=== PATIENT | male | born 1965 | race African-American/Black ===

== ENCOUNTER 2021-09-19 10:41 | Outpatient (CLI) | payer OTHER | END 2021-09-19 10:42 | disposition home or self-care (01) | LOC: TBSIIMAG 10:41 | PROVIDERS: ATTEND Neurological Surgery | DX: M47.12 Other spondylosis with myelopathy, cervical region (principal); M50.00 Cervical disc disorder with myelopathy, unspecified cervical region; M48.02 Spinal stenosis, cervical region; G95.89 Other specified diseases of spinal cord; M48.03 Spinal stenosis, cervicothoracic region; Z98.1 Arthrodesis status | CPT/HCPCS: 72141 ==

== ENCOUNTER 2021-10-02 08:10 | Outpatient (CLI) | payer OTHER | END 2021-10-02 08:11 | disposition home or self-care (01) | LOC: TBSIIMAG 08:10 | PROVIDERS: ATTEND Neurological Surgery | DX: M54.50 Low back pain, unspecified (principal); M47.816 Spondylosis without myelopathy or radiculopathy, lumbar region | CPT/HCPCS: 72148 ==

== ENCOUNTER 2021-11-14 08:40 | Outpatient (CLI) | payer OTHER | END 2021-11-14 08:41 | disposition home or self-care (01) | LOC: BICRAD 08:40 | PROVIDERS: ATTEND Neurological Surgery | DX: M47.12 Other spondylosis with myelopathy, cervical region (principal); M48.062 Spinal stenosis, lumbar region with neurogenic claudication; M47.816 Spondylosis without myelopathy or radiculopathy, lumbar region; M25.78 Osteophyte, vertebrae; Z98.1 Arthrodesis status | CPT/HCPCS: 72050; 72110 ==

== ENCOUNTER 2022-02-05 11:36 | Outpatient (CLI) | payer OTHER ==
[2022-02-05 12:32] LABS: Hemoglobin 13.7 g/dL (13.5-17.5); Mean Corpuscular HGB CONC 34.9 g/dL (32.0-36.0); Mean Corpuscular Hemoglobin 33.9 pg (27.0-33.0); Mean Platelet Volume 9.8 fl (7.4-10.4); Platelet Count 157 10x3/uL (150-450); RBC Distribution Width 11.8 % (11.5-14.5); Red Blood Cell (RBC) Count 4.04 10x6/uL (4.32-5.72); White Blood Cell (WBC) Count 3.7 10x3/uL (3.5-10.5)
[2022-02-05 12:43] LABS: INR-International Normal Ratio 1.1; Prothrombin Time 12.1 sec (9.5-12.1)
[2022-02-05 21:14] LABS: SARS-CoV-2 PCR by NAA Not Detected (NotDetected)
== END 2022-02-05 11:37 | disposition home or self-care (01) ==
LOC: LABBT 11:36
PROVIDERS: ATTEND Neurological Surgery
DX: Z01.812 Encounter for preprocedural laboratory examination (principal); G95.9 Disease of spinal cord, unspecified; M48.02 Spinal stenosis, cervical region; Z20.822 Contact with and (suspected) exposure to COVID-19
CPT/HCPCS: 85027; 85610; 85730; U0003; U0005

== ENCOUNTER 2022-02-08 05:27 | Observation (INO) | payer OTHER ==
[2022-02-08] MEDS ORDERED: Midazolam HCl 2 mg/2 ml Vial ONE (06:08)
[2022-02-08] MEDS ORDERED: fentaNYL Citrate/PF 100 MCG/2 ML SYRINGE ONE ×3 (06:09→08:43)
[2022-02-08] MEDS ORDERED: Lidocaine 2% Jelly 5 ML TUBE ONE (06:09)
[2022-02-08] MEDS ORDERED: EPINEPHrine 1 MG/ML AMP ONE (06:13)
[2022-02-08] MEDS ORDERED: Bupivacaine PF 0.5% 30 ML VIAL ONE ×2 (06:13→08:47)
[2022-02-08] MEDS ORDERED: Thrombin 5000 UNITS/5 ML VIAL ONE (06:13)
[2022-02-08] MEDS ORDERED: Neomycin-Polymyxin 1 ML AMP ONE (06:13)
[2022-02-08] MEDS ORDERED: Bacitracin Zinc Ointment 30 gm TUBE ONE (06:13)
[2022-02-08] MEDS ORDERED: ceFAZolin (BATCH) 2 GM/100 ML BAG ONE (06:50)
[2022-02-08] MEDS ORDERED: Cyclobenzaprine 10 MG TAB PO PRN (06:54)
[2022-02-08] MEDS ORDERED: diphenhydrAMINE 50 MG/ML VIAL IVP PRN (06:54)
[2022-02-08] MEDS ORDERED: Milk Of Magnesia 30 ML UDCUP PO PRN (06:54)
[2022-02-08] MEDS ORDERED: Acetaminophen/Codeine 30-300mg Tablet PO PRN (06:54)
[2022-02-08] MEDS ORDERED: Acetaminophen 325 MG TAB PO PRN (06:54)
[2022-02-08] MEDS ORDERED: HYDROcodone/Acetaminophen 7.5/325 mg Tablet PO PRN (06:54)
[2022-02-08] MEDS ORDERED: Ondansetron PF 4 MG/2 ML Vial IVP PRN (06:54)
[2022-02-08] MEDS ORDERED: Promethazine 25 MG TAB PO PRN (06:54)
[2022-02-08] MEDS ORDERED: Bisacodyl 10 MG SUPP PR PRN (06:54)
[2022-02-08] MEDS ORDERED: Mag-Al 1200 mg/1200 mg/30 ML UDCUP PO PRN (06:54)
[2022-02-08] MEDS ORDERED: Ondansetron PF 4 MG/2 ML Vial ONE (07:05)
[2022-02-08] MEDS ORDERED: PHENYLEPHRINE-NS 100 MCG/ML 10 ML SYRINGE ONE (07:05)
[2022-02-08] MEDS ORDERED: Dexamethasone 20 MG/5 ML VIAL ONE (07:05)
[2022-02-08] MEDS ORDERED: PROPOFOL 200 MG/20 ML VIAL ONE (07:05)
[2022-02-08] MEDS ORDERED: Labetalol HCl 100 MG/20 ML VIAL ONE (07:05)
[2022-02-08] MEDS ORDERED: Rocuronium Bromide 10 MG/ML (10ML VIAL) ONE (07:05)
[2022-02-08] MEDS ORDERED: Glycopyrrolate 0.2 MG/ML 5 ML SYRINGE ONE (07:05)
[2022-02-08] MEDS ORDERED: Ketorolac Tromethamine 30 MG/ML VIAL ONE (07:05)
[2022-02-08] MEDS ORDERED: ePHEDrine 50 MG/ML VIAL ONE (07:05)
[2022-02-08] MEDS ORDERED: Lidocaine 1% PF 5 ML VIAL ONE (07:05)
[2022-02-08] MEDS ORDERED: hydrALAZINE 20 MG/ML VIAL ONE (08:47)
[2022-02-08] MEDS ORDERED: Rocuronium Bromide 50 MG/5 ML VIAL ONE (09:32)
[2022-02-08] MEDS ORDERED: ePHEDrine Sulfate 50 MG/10 ML VIAL ONE (09:32)
[2022-02-08] MEDS ORDERED: Promethazine HCl 25 MG/ML VIAL IVPB PRN (11:54)
[2022-02-08] MEDS ORDERED: Promethazine HCl 25 MG/ML VIAL IM PRN (11:54)
[2022-02-08] MEDS ORDERED: HYDROmorphone 2 MG/ML VIAL SLOW IVP PRN (11:54)
[2022-02-08] MEDS ORDERED: Ondansetron HCl/PF 4 MG/2 ML Vial IVP PRN (11:54)
[2022-02-08] MEDS ORDERED: Fentanyl 100 MCG/2 ML VIAL ONE (11:56)
[2022-02-08 15:48] VITALS: BMI 25.7
[2022-02-08] MEDS: Sodium Chloride 0.9% 1,000 ML IV SCH (16:11)
[2022-02-08] MEDS: Morphine 2 MG/ML VIAL SLOW IVP PRN (16:12)
[2022-02-08] MEDS: ceFAZolin (BATCH) 2 GM in Premix Bag 1 BAG IVPB SCH ×2 (17:45→22:49)
[2022-02-08] MEDS: HYDROcodone/Acetaminophen 10/325 mg Tablet PO PRN ×2 (17:57→22:07)
[2022-02-09] MEDS: HYDROcodone/Acetaminophen 10/325 mg Tablet PO PRN ×4 (03:11→22:22)
[2022-02-09] MEDS: Sodium Chloride 0.9% 1,000 ML IV SCH ×3 (03:14→22:22)
[2022-02-09] MEDS: Morphine 2 MG/ML VIAL SLOW IVP PRN ×3 (06:20→18:25)
[2022-02-09] MEDS ORDERED: Diazepam 5 MG TAB PO SCH (11:30)
[2022-02-09] MEDS: tiZANidine HCl 4 MG TAB PO SCH ×2 (14:04→22:22)
[2022-02-10] MEDS: HYDROcodone/Acetaminophen 10/325 mg Tablet PO PRN ×4 (06:22→21:08)
[2022-02-10] MEDS: tiZANidine HCl 4 MG TAB PO SCH ×3 (06:26→21:08)
[2022-02-10] MEDS: Sodium Chloride 0.9% 1,000 ML IV SCH (10:40)
[2022-02-11] MEDS: HYDROcodone/Acetaminophen 10/325 mg Tablet PO PRN ×3 (01:19→14:12)
[2022-02-11] MEDS: Sodium Chloride 0.9% 1,000 ML IV SCH ×2 (02:55→11:23)
[2022-02-11] MEDS: tiZANidine HCl 4 MG TAB PO SCH (05:59)
[2022-02-11] MEDS ORDERED: Cyclobenzaprine 10 MG TAB PO PRN (07:47)
[2022-02-11 08:14] VITALS: BP 110/66; TEMP 98.5
== END 2022-02-11 16:46 ==
LOC: SDC 05:27 → MSONC 13:29
PROVIDERS: ADMIT Neurological Surgery; ATTEND Neurological Surgery
PROC: 01N10ZZ Release Cervical Nerve, Open Approach (ICD-10-PCS; principal; 2022-02-08)
DX: M48.02 Spinal stenosis, cervical region (principal); M47.12 Other spondylosis with myelopathy, cervical region; M48.062 Spinal stenosis, lumbar region with neurogenic claudication; R33.9 Retention of urine, unspecified; M62.838 Other muscle spasm; N40.0 Benign prostatic hyperplasia without lower urinary tract symptoms; F17.200 Nicotine dependence, unspecified, uncomplicated; G89.29 Other chronic pain; Z51.5 Encounter for palliative care; Z79.899 Other long term (current) drug therapy; Z98.1 Arthrodesis status
CPT/HCPCS: 76000; 93970; 96365; 96366; 96375; 96376; G0378; J0171; J0360; J0690; J1100; J1885; J2250; J2270; J2405; J2704; J3010; J3370; J3490; J7050; S0020

== ENCOUNTER 2022-03-25 10:44 | Outpatient (CLI) | payer OTHER ==
[2022-03-25 11:57] LABS: Mean Corpuscular HGB CONC 35.3 g/dL (32.0-36.0); Mean Corpuscular Volume 93.4 fl (81.2-95.1); Mean Platelet Volume 9.3 fl (7.4-10.4); Platelet Count 203 10x3/uL (150-450); RBC Distribution Width 11.9 % (11.5-14.5); Red Blood Cell (RBC) Count 3.64 10x6/uL (4.32-5.72); White Blood Cell (WBC) Count 4.3 10x3/uL (3.5-10.5)
== END 2022-03-25 10:45 | disposition home or self-care (01) ==
LOC: LABBT 10:44
PROVIDERS: ATTEND Neurological Surgery
DX: Z01.812 Encounter for preprocedural laboratory examination (principal); M48.061 Spinal stenosis, lumbar region without neurogenic claudication; Z20.822 Contact with and (suspected) exposure to COVID-19
CPT/HCPCS: 85027; U0003; U0005

== ENCOUNTER 2022-03-28 10:27 | Inpatient (IN) | payer OTHER ==
[2022-03-28] MEDS ORDERED: Neomycin-Polymyxin 1 ML AMP ONE (10:37)
[2022-03-28] MEDS ORDERED: Thrombin 5000 UNITS/5 ML VIAL ONE (10:37)
[2022-03-28] MEDS ORDERED: Bupivacaine PF 0.5% 30 ML VIAL ONE (10:37)
[2022-03-28] MEDS ORDERED: EPINEPHrine 1 MG/ML AMP ONE (10:37)
[2022-03-28] MEDS ORDERED: CEFAZOLIN 2 GM VIAL ONE ×2 (12:03→16:43)
[2022-03-28] MEDS ORDERED: Sodium Chloride 0.9% 100 ML ONE ×2 (12:03→16:43)
[2022-03-28] MEDS ORDERED: fentaNYL Citrate/PF 100 MCG/2 ML SYRINGE ONE (12:08)
[2022-03-28] MEDS ORDERED: Lidocaine 2% Jelly 5 ML TUBE ONE (12:08)
[2022-03-28] MEDS ORDERED: PROPOFOL 200 MG/20 ML VIAL ONE (12:25)
[2022-03-28] MEDS ORDERED: Lidocaine 1% PF 5 ML VIAL ONE (12:25)
[2022-03-28] MEDS ORDERED: Rocuronium Bromide 10 MG/ML (10ML VIAL) ONE (12:25)
[2022-03-28] MEDS ORDERED: Ondansetron PF 4 MG/2 ML Vial ONE (12:25)
[2022-03-28] MEDS ORDERED: PHENYLEPHRINE-NS 100 MCG/ML 10 ML SYRINGE ONE (12:25)
[2022-03-28] MEDS ORDERED: ePHEDrine 50 MG/ML VIAL ONE (12:25)
[2022-03-28] MEDS ORDERED: Glycopyrrolate 0.2 MG/ML 5 ML SYRINGE ONE (12:25)
[2022-03-28 12:41] LABS: INR-International Normal Ratio 1.3; Prothrombin Time 15.9 sec (12.0-14.7)
[2022-03-28 12:42] LABS: PTT 31.6 sec (22.9-36.1)
[2022-03-28] MEDS ORDERED: Promethazine 25 MG TAB PO PRN (16:41)
[2022-03-28] MEDS ORDERED: Bisacodyl 10 MG SUPP PR PRN (16:41)
[2022-03-28] MEDS ORDERED: Prochlorperazine 10 MG/2 ML VIAL IM PRN (16:41)
[2022-03-28] MEDS ORDERED: Ondansetron PF 4 MG/2 ML Vial IVP PRN (16:41)
[2022-03-28] MEDS ORDERED: Fentanyl 100 MCG/2 ML VIAL ONE ×2 (16:46→17:36)
[2022-03-28] MEDS ORDERED: Promethazine HCl 25 MG/ML VIAL IM PRN (16:53)
[2022-03-28] MEDS ORDERED: HYDROmorphone 2 MG/ML VIAL SLOW IVP PRN (16:53)
[2022-03-28] MEDS ORDERED: Meperidine HCl/PF 25 MG/ML VIAL SLOW IVP PRN (16:53)
[2022-03-28] MEDS: Sodium Chloride 0.9% 1,000 ML IV SCH (20:13)
[2022-03-28] MEDS: Morphine 2 MG/ML VIAL SLOW IVP PRN (20:14)
[2022-03-28] MEDS: CEFAZOLIN 2 GM in Sodium Chloride 0.9% 100 ML IVPB SCH (20:15)
[2022-03-28] MEDS: Acetaminophen/Codeine 30-300mg Tablet PO PRN (22:07)
[2022-03-28] MEDS: Mag-Al 1200 mg/1200 mg/30 ML UDCUP PO PRN (22:07)
[2022-03-28] MEDS: Cyclobenzaprine 10 MG TAB PO PRN (22:08)
[2022-03-28] MEDS: HYDROcodone/Acetaminophen 10/325 mg Tablet PO PRN (23:35)
[2022-03-29] MEDS: CEFAZOLIN 2 GM in Sodium Chloride 0.9% 100 ML IVPB SCH (02:58)
[2022-03-29] MEDS: Morphine 2 MG/ML VIAL SLOW IVP PRN ×3 (05:25→11:58)
[2022-03-29 05:50] LABS: Anion Gap 13 mmol/L (10-20); BUN (Urea Nitrogen) 15 mg/dL (8.4-25.7); Calc. Creatinine Clearance 76 mL/min (70-130); Calcium 8.3 mg/dL (7.8-10.44); Carbon Dioxide 21 mmol/L (22-29); Chloride 108 mmol/L (98-107); Glucose 107 mg/dL (70-105); Potassium 4.2 mmol/L (3.5-5.1); Sodium 138 mmol/L (136-145)
[2022-03-29 06:09] LABS: #Monocytes 0.4 thou/uL (0.11-0.59); #Neutrophils 4.3 thou/uL (1.40-6.50); %Basophils 0.1 % (0.0-1.0); %Eosinophils 0.3 % (0.0-10.0); %Lymphocytes 17.9 % (21.0-51.0); %Monocytes 7.3 % (0.0-10.0); %Neutrophils 74.4 % (42.0-75.0); Hemoglobin 10.6 g/dL (14.0-18.0); Mean Corpuscular HGB CONC 34.8 g/dL (32.0-36.0); Mean Corpuscular Hemoglobin 34.9 pg (27.0-31.0); Mean Platelet Volume 6.6 fL (7.4-10.4); Platelet Count 176 thou/uL (130-400); RBC Distribution Width 11.1 % (11.5-14.5); Red Blood Cell (RBC) Count 3.04 mill/uL (4.70-6.10); White Blood Cell (WBC) Count 5.8 thou/uL (4.8-10.8)
[2022-03-29] MEDS: Multivit, Therapeutic 1 TAB PO SCH (08:48)
[2022-03-29] MEDS: Sodium Chloride 0.9% 1,000 ML IV SCH ×2 (08:48→21:15)
[2022-03-29] MEDS: HYDROcodone/Acetaminophen 10/325 mg Tablet PO PRN ×2 (17:37→21:11)
[2022-03-29] MEDS ORDERED: Tamsulosin HCl 0.4 MG CAP PO SCH (18:00)
[2022-03-29] MEDS: Cyclobenzaprine 10 MG TAB PO PRN (21:11)
[2022-03-30] MEDS: Acetaminophen/Codeine 30-300mg Tablet PO PRN ×2 (01:12→11:11)
[2022-03-30] MEDS: HYDROcodone/Acetaminophen 10/325 mg Tablet PO PRN ×2 (01:13→06:55)
[2022-03-30] MEDS: Cyclobenzaprine 10 MG TAB PO PRN (06:55)
[2022-03-30] MEDS: Sodium Chloride 0.9% 1,000 ML IV SCH ×2 (09:32→21:03)
[2022-03-30] MEDS: Multivit, Therapeutic 1 TAB PO SCH (09:33)
[2022-03-30] MEDS ORDERED: Milk Of Magnesia 30 ML UDCUP PO PRN (13:09)
[2022-03-30] MEDS ORDERED: Bisacodyl 5 MG TAB PO PRN (13:09)
[2022-03-30] MEDS ORDERED: Bisacodyl 10 MG SUPP PR PRN (13:09)
[2022-03-30] MEDS: Ketorolac Tromethamine 30 MG/ML VIAL IVP PRN ×2 (13:23→18:11)
[2022-03-30] MEDS: Acetaminophen 325 MG TAB PO PRN (18:13)
[2022-03-30] MEDS: Docusate 100 MG CAP PO SCH (21:02)
[2022-03-30] MEDS: Tamsulosin HCl 0.4 MG CAP PO SCH (21:02)
[2022-03-30] MEDS: Diazepam 5 MG TAB PO PRN (21:02)
[2022-03-31] MEDS: Cyclobenzaprine 10 MG TAB PO PRN (00:43)
[2022-03-31] MEDS: Acetaminophen 325 MG TAB PO PRN ×3 (00:43→18:40)
[2022-03-31] MEDS: Ketorolac Tromethamine 30 MG/ML VIAL IVP PRN ×3 (00:44→18:40)
[2022-03-31] MEDS: Diazepam 5 MG TAB PO PRN ×2 (05:52→13:01)
[2022-03-31] MEDS: Multivit, Therapeutic 1 TAB PO SCH (08:04)
[2022-03-31] MEDS: Docusate 100 MG CAP PO SCH ×2 (08:05→20:35)
[2022-03-31] MEDS ORDERED: Fish Oil 1,000 MG CAP PO SCH (09:00)
[2022-03-31 09:43] LABS: Anion Gap 10 mmol/L (10-20); BUN (Urea Nitrogen) 12 mg/dL (8.4-25.7); Calc. Creatinine Clearance 115 mL/min (70-130); Calcium 8.3 mg/dL (7.8-10.44); Carbon Dioxide 25 mmol/L (22-29); Chloride 107 mmol/L (98-107); Glucose 106 mg/dL (70-105); Potassium 3.5 mmol/L (3.5-5.1); Sodium 138 mmol/L (136-145)
[2022-03-31] MEDS: hydrALAZINE 20 MG/ML VIAL SLOW IVP PRN (12:57)
[2022-03-31] MEDS: Sodium Chloride 0.9% 1,000 ML IV SCH (13:02)
[2022-03-31] MEDS: Tamsulosin HCl 0.4 MG CAP PO SCH (20:35)
[2022-03-31] MEDS: HYDROcodone/Acetaminophen 10/325 mg Tablet PO PRN (23:11)
[2022-04-01] MEDS: Sodium Chloride 0.9% 1,000 ML IV SCH ×2 (06:43→14:24)
[2022-04-01] MEDS: hydrALAZINE 20 MG/ML VIAL SLOW IVP PRN (08:36)
[2022-04-01] MEDS: Multivit, Therapeutic 1 TAB PO SCH (08:37)
[2022-04-01] MEDS: Docusate 100 MG CAP PO SCH ×2 (08:37→21:40)
[2022-04-01] MEDS ORDERED: Lidocaine 1% (PF) 30 ML VIAL ONE (10:55)
[2022-04-01] MEDS ORDERED: Fentanyl 100 MCG/2 ML VIAL ONE (11:17)
[2022-04-01] MEDS ORDERED: Iopamidol 370 76% 50 ML VIAL FS ONE (13:27)
[2022-04-01] MEDS: Mag-Al 1200 mg/1200 mg/30 ML UDCUP PO PRN (15:26)
[2022-04-01] MEDS: HYDROcodone/Acetaminophen 7.5/325 mg Tablet PO PRN (16:55)
[2022-04-01] MEDS: Tamsulosin HCl 0.4 MG CAP PO SCH (21:40)
[2022-04-01] MEDS: HYDROcodone/Acetaminophen 10/325 mg Tablet PO PRN (21:44)
[2022-04-02] MEDS: Sodium Chloride 0.9% 1,000 ML IV SCH ×2 (04:03→17:04)
[2022-04-02] MEDS: HYDROcodone/Acetaminophen 10/325 mg Tablet PO PRN ×4 (04:39→22:24)
[2022-04-02] MEDS: Multivit, Therapeutic 1 TAB PO SCH (09:06)
[2022-04-02] MEDS: Docusate 100 MG CAP PO SCH ×2 (09:07→20:38)
[2022-04-02] MEDS: Tamsulosin HCl 0.4 MG CAP PO SCH (20:38)
[2022-04-03] MEDS: Diazepam 5 MG TAB PO PRN ×3 (00:35→23:14)
[2022-04-03] MEDS: Sodium Chloride 0.9% 1,000 ML IV SCH ×2 (03:57→22:46)
[2022-04-03] MEDS: hydrALAZINE 20 MG/ML VIAL SLOW IVP PRN (04:27)
[2022-04-03] MEDS: HYDROcodone/Acetaminophen 10/325 mg Tablet PO PRN ×4 (04:28→21:35)
[2022-04-03] MEDS ORDERED: Amlodipine 5 MG TAB PO SCH (09:00)
[2022-04-03] MEDS: Multivit, Therapeutic 1 TAB PO SCH (09:21)
[2022-04-03] MEDS: Docusate 100 MG CAP PO SCH ×2 (09:22→20:08)
[2022-04-03] MEDS: Tamsulosin HCl 0.4 MG CAP PO SCH (20:07)
[2022-04-04] MEDS: HYDROcodone/Acetaminophen 7.5/325 mg Tablet PO PRN (01:35)
[2022-04-04] MEDS: HYDROcodone/Acetaminophen 10/325 mg Tablet PO PRN ×4 (05:49→20:26)
[2022-04-04] MEDS: hydrALAZINE 20 MG/ML VIAL SLOW IVP PRN (05:52)
[2022-04-04] MEDS: Sodium Chloride 0.9% 1,000 ML IV SCH ×2 (08:46→23:00)
[2022-04-04] MEDS: Amlodipine 5 MG TAB PO SCH (08:46)
[2022-04-04] MEDS: Multivit, Therapeutic 1 TAB PO SCH (08:46)
[2022-04-04] MEDS: Docusate 100 MG CAP PO SCH ×2 (08:46→20:26)
[2022-04-04] MEDS: Diazepam 5 MG TAB PO PRN ×2 (08:50→21:44)
[2022-04-04] MEDS: Tamsulosin HCl 0.4 MG CAP PO SCH (20:26)
[2022-04-05] MEDS: HYDROcodone/Acetaminophen 7.5/325 mg Tablet PO PRN (05:20)
[2022-04-05] MEDS: Diazepam 5 MG TAB PO PRN ×3 (05:29→22:15)
[2022-04-05 06:37] VITALS: BMI 23.1
[2022-04-05] MEDS: Docusate 100 MG CAP PO SCH ×2 (09:45→20:20)
[2022-04-05] MEDS: Amlodipine 5 MG TAB PO SCH (09:45)
[2022-04-05] MEDS: HYDROcodone/Acetaminophen 10/325 mg Tablet PO PRN ×3 (09:45→20:20)
[2022-04-05] MEDS: Multivit, Therapeutic 1 TAB PO SCH (09:45)
[2022-04-05] MEDS: Sodium Chloride 0.9% 1,000 ML IV SCH (13:58)
[2022-04-05] MEDS: Tamsulosin HCl 0.4 MG CAP PO SCH (20:20)
[2022-04-06] MEDS: Sodium Chloride 0.9% 1,000 ML IV SCH ×2 (00:21→16:31)
[2022-04-06] MEDS: HYDROcodone/Acetaminophen 10/325 mg Tablet PO PRN ×2 (00:24→04:18)
[2022-04-06] MEDS: Acetaminophen 325 MG TAB PO PRN ×2 (08:43→21:54)
[2022-04-06] MEDS: Amlodipine 5 MG TAB PO SCH (08:44)
[2022-04-06] MEDS: Multivit, Therapeutic 1 TAB PO SCH (08:44)
[2022-04-06] MEDS: Docusate 100 MG CAP PO SCH ×2 (08:45→19:55)
[2022-04-06] MEDS: Diazepam 5 MG TAB PO PRN (19:30)
[2022-04-06] MEDS: Tamsulosin HCl 0.4 MG CAP PO SCH (20:01)
[2022-04-06] MEDS: diphenhydrAMINE 50 MG/ML VIAL IVP PRN (21:54)
[2022-04-07] MEDS: Sodium Chloride 0.9% 1,000 ML IV SCH ×2 (03:54→16:50)
[2022-04-07] MEDS: Diazepam 5 MG TAB PO PRN ×2 (04:00→13:24)
[2022-04-07] MEDS: diphenhydrAMINE 50 MG/ML VIAL IVP PRN (07:53)
[2022-04-07] MEDS: Amlodipine 5 MG TAB PO SCH (07:54)
[2022-04-07] MEDS: Acetaminophen 325 MG TAB PO PRN ×2 (07:54→13:24)
[2022-04-07] MEDS: Docusate 100 MG CAP PO SCH ×2 (07:55→20:59)
[2022-04-07] MEDS: Multivit, Therapeutic 1 TAB PO SCH (07:55)
[2022-04-07] MEDS: Acetaminophen/Codeine 30-300mg Tablet PO PRN (16:44)
[2022-04-07] MEDS: Tamsulosin HCl 0.4 MG CAP PO SCH (20:59)
[2022-04-08] MEDS: Sodium Chloride 0.9% 1,000 ML IV SCH ×2 (02:27→21:02)
[2022-04-08] MEDS: Acetaminophen/Codeine 30-300mg Tablet PO PRN ×3 (09:06→21:01)
[2022-04-08] MEDS: Amlodipine 5 MG TAB PO SCH (09:07)
[2022-04-08] MEDS: Docusate 100 MG CAP PO SCH ×2 (09:07→21:02)
[2022-04-08] MEDS: Multivit, Therapeutic 1 TAB PO SCH (09:08)
[2022-04-08] MEDS: Tamsulosin HCl 0.4 MG CAP PO SCH (21:02)
[2022-04-09] MEDS: Acetaminophen/Codeine 30-300mg Tablet PO PRN (08:58)
[2022-04-09] MEDS: Sodium Chloride 0.9% 1,000 ML IV SCH (08:59)
[2022-04-09] MEDS: Amlodipine 5 MG TAB PO SCH (08:59)
[2022-04-09] MEDS: Multivit, Therapeutic 1 TAB PO SCH (08:59)
[2022-04-09] MEDS: Docusate 100 MG CAP PO SCH (09:00)
[2022-04-09 12:27] VITALS: BP 133/87; TEMP 98
== END 2022-04-09 13:05 | disposition home or self-care (01) | DRG 516 ==
LOC: SDC 10:27 → SJJU 16:41 → OBSVTOIN 03-31 10:28
PROVIDERS: ADMIT Neurological Surgery; ATTEND Neurological Surgery
PROC: 01NB0ZZ Release Lumbar Nerve, Open Approach (ICD-10-PCS; principal; 2022-03-28)
PROC: 01NR0ZZ Release Sacral Nerve, Open Approach (ICD-10-PCS; 2022-03-28)
PROC: 06H03DZ Insertion of Intraluminal Device into Inferior Vena Cava, Percutaneous Approach (ICD-10-PCS; 2022-04-01)
PROC: B5191ZZ Fluoroscopy of Inferior Vena Cava using Low Osmolar Contrast (ICD-10-PCS; 2022-04-01)
DX: M48.062 Spinal stenosis, lumbar region with neurogenic claudication (principal); G99.2 Myelopathy in diseases classified elsewhere; I82.411 Acute embolism and thrombosis of right femoral vein; I10 Essential (primary) hypertension; R73.03 Prediabetes; G89.29 Other chronic pain; N40.1 Benign prostatic hyperplasia with lower urinary tract symptoms; R33.8 Other retention of urine; Z98.890 Other specified postprocedural states; Z98.1 Arthrodesis status; Z83.3 Family history of diabetes mellitus; Z79.899 Other long term (current) drug therapy; Z87.891 Personal history of nicotine dependence
CPT/HCPCS: 36415; 37191; 51701; 51798; 76000; 80048; 85025; 85610; 85730; 93970; 96374; 96375; 96376; 99152; C1776; C1880; G0378; J0171; J0360; J0690; J1200; J1885; J2001; J2270; J2405; J2704; J3010; J3370; J3490; J7050; Q9967; S0020

== ENCOUNTER 2022-05-17 14:10 | Outpatient (CLI) | payer OTHER ==
[2022-05-17 15:03] LABS: Hemoglobin 11.8 g/dL (13.5-17.5); Mean Corpuscular HGB CONC 34.6 g/dL (32.0-36.0); Mean Corpuscular Hemoglobin 32.2 pg (27.0-33.0); Mean Corpuscular Volume 93.2 fl (81.2-95.1); Mean Platelet Volume 9.4 fl (7.4-10.4); Platelet Count 196 10x3/uL (150-450); RBC Distribution Width 12.6 % (11.5-14.5); Red Blood Cell (RBC) Count 3.66 10x6/uL (4.32-5.72); White Blood Cell (WBC) Count 3.4 10x3/uL (3.5-10.5)
[2022-05-17 15:19] LABS: Anion Gap 10 mmol/L (10-20); BUN (Urea Nitrogen) 17 mg/dL (8.4-25.7); Calc. Creatinine Clearance 0 mL/min (70-130); Calcium 9.3 mg/dL (7.8-10.44); Carbon Dioxide 27 mmol/L (22-29); Chloride 109 mmol/L (98-107); Estimated GFR 65; Glucose 111 mg/dL (70-105); Potassium 4.1 mmol/L (3.5-5.1); Sodium 142 mmol/L (136-145)
== END 2022-05-17 14:11 | disposition home or self-care (01) ==
LOC: LABBT 14:10
PROVIDERS: ATTEND Thoracic Surgery (Cardiothoracic Vascular Surgery)
DX: Z01.812 Encounter for preprocedural laboratory examination (principal); I82.409 Acute embolism and thrombosis of unspecified deep veins of unspecified lower extremity; I51.9 Heart disease, unspecified; N28.9 Disorder of kidney and ureter, unspecified; Z20.822 Contact with and (suspected) exposure to COVID-19
CPT/HCPCS: 80048; 85027; 87811

== ENCOUNTER → 2022-05-20 | Day surgery (SDC) | payer OTHER ==
[2022-05-17 09:39] VITALS: BMI 25.0
[~2022-05-20] MED LIST: Iopamidol 370 76% 50 ML VIAL FS ONE; Lidocaine 1% PF 5 ML VIAL ONE
== END | disposition home or self-care (01) ==
LOC: SDC 05:51
PROVIDERS: ATTEND Thoracic Surgery (Cardiothoracic Vascular Surgery)
PROC: 06PY3DZ Removal of Intraluminal Device from Lower Vein, Percutaneous Approach (ICD-10-PCS; principal; 2022-05-20)
DX: Z45.89 Encounter for adjustment and management of other implanted devices (principal); F17.210 Nicotine dependence, cigarettes, uncomplicated; Z86.718 Personal history of other venous thrombosis and embolism; Z79.899 Other long term (current) drug therapy; Z88.8 Allergy status to other drugs, medicaments and biological substances
CPT/HCPCS: 37193; C1773; Q9967